=== PATIENT | female | born 2000 | race Caucasian/White ===

== ENCOUNTER 2024-06-20 10:35 | Emergency (ER) | payer BC, SELFPAY ==
[2024-06-20] VITALS (8 sets, daily range): BP systolic 97–112; BP diastolic 63–71; PULSE 69–106; RESP 12–18; TEMP 36.6–36.7; O2SAT 98–100
--- NOTE | ~2024-06-20 | CT_ITS ---
Non-contrast CT scan of the Abdomen and Pelvis Clinical indication: Kidney stone Technique: 2.5 mm axial scans were obtained through the abdomen and pelvis without intravenous or or al contrast. Dose reduction technique was used on this scan by utilizing automated exposure control a nd iterative reconstruction technique. The dose-length product (DLP) was 376.93 mGy-cm. Findings: Images through the lung bases reveal focal patchy left basilar airspace disease, compatibl e with left lower lobe pneumonia.. Small bilateral nonobstructing renal stones are present, measuring up to 4 mm in maximum diameter to right lower pole. There is a 7 x 4 mm ovoid stone the proximal left ureter with mild left hydronephro sis. No right ureteral stone or right hydronephrosis. The liver, spleen, pancreas, gallbladder, and adrenals appear normal. There is no aortic aneurysm. There is no evidence of bowel obstruction. Images through the pelvis were performed. There is no evidence of ascites or lymphadenopathy. Urinary bladder unremarkable. No pelvic mass seen. Impression: 7 x 4 mm stone in the proximal left ureter, with mild left hydronephrosis. Additional small bilateral nonobstructing renal stones, as detailed above. Reviewed, dictated and finalized at location . Impression: 7 x 4 mm stone in the proximal left ureter, with mild left hydronephrosis. Additional small bilateral nonobstructing renal stones, as detailed above.
--- NOTE | ~2024-06-20 | XR_ITS ---
XR abdomen/kub 1V 06/20/2024 12:59 Indication: Kidney stone Procedure: KUB Comparison: CT dated 06/20/2024 Findings: There is a proximal left ureteral stone at the L2-3 level. There is a right renal stone. Th ere is nonobstructive bowel gas pattern with moderate colonic fecal loading. No acute osseous abnorma lity. Impression: 1: Proximal left ureteral stone corresponding to stones seen on CT examination. 2: Right nephrolithiasis. Reviewed, dictated and finalized at location B. Impression: 1: Proximal left ureteral stone corresponding to stones seen on CT examination. 2: Right nephrolithiasis.
[2024-06-20 10:58] LABS: BEDSIDEPREGUCG Negative (Negative)
[2024-06-20 11:04] LABS: Basophils Percent Auto 0.4 % (0.2-1.2); Eosinophils Percent Auto 0.5 % (0-4.4); Hematocrit 44.6 % (37.0-47.0); Hemoglobin 14.4 g/dL (12.0-15.0); Immature Granulocyte Absolute 0.02 K/mm3 (0.00-0.031); Immature Granulocyte Percent A 0.2 % (0-0.5); Lymphocytes Absolute Auto 0.77 K/mm3 (0.9-3.2); Lymphocytes Percent Auto 9.2 % (18.3-44.2); Mean Corpuscular HGB Conc 32.3 g/dl (32-36); Mean Corpuscular Hemoglobin 27.9 pg (26-34); Mean Corpuscular Volume 86.4 fl (80-100); Mean Platelet Volume 9.7 fl (7.4-10.4); Monocytes Absolute Auto 0.5 K/mm3 (0.1-0.6); Monocytes Percent Auto 6.1 % (2.6-8.5); Neutrophils Percent Auto 83.6 % (45.5-73.1); Platelet Count Result 386 k/mm3 (150-375); Red Blood Count 5.16 M/mm3 (4.2-5.4); Red Cell Distribution Width 13.3 % (11.5-14.5); White Blood Count 8.3 K/mm3 (4.5-10.0)
[2024-06-20 11:15] LABS: Alanine Aminotransferase 20 U/L (6-35); Albumin Level 4.5 g/dL (3.5-5.1); Alkaline Phosphatase 91 U/L (38-126); Anion Gap 14 mmol/L (4-12); Aspartate Amino Transferase 22 U/L (14-36); Bilirubin,Total 1.1 mg/dL (0.2-1.3); Blood Urea Nitrogen 8 mg/dL (7-17); Calcium 9.6 mg/dL (8.4-10.2); Carbon Dioxide 24 mmol/L (22-30); Chloride 101 mmol/L (98-107); Estimated CRCL calculation 90 ml/min; Estimated Glomerular Filt Rate > 60; Glucose 103 mg/dL (65-110); Potassium 3.7 mmol/L (3.4-5.0); Sodium 139 mmol/L (137-145)
[2024-06-20 11:16] LABS: Lactic Acid Reflex 1.5 mmol/L (0.7-2.0)
[2024-06-20 11:19] LABS: Add Urine Microscopic? YES; Appearance Urine Turbid (Clear); Bacteria Urine None Seen /hpf; Bilirubin Urine Negative (Negative); Blood Urine 3+ (Negative); Color Urine Yellow (Yellow); Glucose Urine UA Negative (Negative); Ketones Urine 1+ mg/dL (Negative); Leukocyte Esterase Ur Trace LEU/UL (Negative); Mucus Urine Present /lpf; Need Manual Microscopic Reviewed; Nitrate Urine Negative (Negative); Protein Urine 1+ mg/dL (Negative); RBC Urine >100 /hpf (0-2); Specific Grav Ur 1.014 (1.001-1.035); Squamous Epithelial Cell Urine None Seen /hpf (Few); WBC Urine 0-5 /hpf (0-3); pH Urine 7.5 (5.0-9.0)
--- NOTE | 2024-06-20 13:26 | WPDURCON ---
Assessment and Plan Assessment and plan (1) Left ureteral calculus: Code(s): N20.1 - Calculus of ureter Status: Acute Assessment and Plan: Given that she is afebrile and pain is nonexistent at this time. Normal white count and urinalysis. Will recommend discharge from the emergency room. Discharged home with pain meds antibiotics and Flomax. Instructed to hold off on any anti-inflammatories or aspirin products. Urine to be obtained for culture. We will schedule her for left ureteral lithotripsy. She is aware if the pain recurs and not controlled that she may need a stent placed. This completes dictation. Please send a copy to my office Urology Consult Note HPI Date Seen: 06/20/24 Time Seen: 13:26 Primary Care Provider: Aurora Dumont, Consult Narrative Reason for consult: Left proximal ureteral calculus 7 mm Narrative: Yanelis Love is a 24 year old female with no prior history of stones who developed some left flank pain. By the time she got to the emergency room she was feeling better but she was worked up. CT scan was obtained which revealed a 7 mm left proximal ureteral calculus. She also has a right renal stone. Both her KUB positive. Her white count was 8000 no evidence of fever at this time. Urinalysis without evidence of infection. Review of Systems Review of Systems: All systems reviewed & are unremarkable except as noted in HPI and below PMFSH Past Medical History Medical History Allergies Asthma Broken arm Right Surgical History Surgical History History of placement of ear tubes Family History Family History Father Diabetes mellitus Mother Asthma Grandparent Alcoholism Heart disease Social History Social History Smoking status: Never smoker Alcohol intake: never Substance use: never Meds Home Medications and Allergies Home Medications Medication Instructions Recorded Confirmed Type multivitamin 1 tablet PO DAILY 03/11/22 05/26/22 History norgestimate-ethinyl estradiol 1 tablet PO DAILY #84 tabs 04/20/22 05/26/22 Rx 0.18 mg/0.215mg/0.25mg-35 mcg(28)tablet (Tri Femynor) Allergies Allergy/AdvReac Type Severity Reaction Status Date / Time No Known Allergies Allergy Verified 06/20/24 10:39 Vital Signs Vital Signs - 24 hr 06/20/24 10:36 06/20/24 10:58 06/20/24 11:38 Temperature 36.6 C Pulse Rate 106 H 69 79 Respiratory Rate 18 12 Blood Pressure 110/65 112/69 97/66 L Pulse Oximetry 100 100 100 Oxygen Delivery Room Air 06/20/24 11:45 Temperature Pulse Rate 81 Respiratory Rate Blood Pressure 98/66 L Pulse Oximetry 99 Oxygen Delivery Exam Const: General: cooperative, healthy appearing and comfortable Resp: Effort & Inspection: normal respiratory effort Cardio: Rate: regular rate Rhythm: regular rhythm Results Labs 06/20/24 10:56 06/20/24 10:56 Labs: Short CBC 06/20/24 Range/Units 10:56 WBC 8.3 (4.5-10.0) K/mm3 Hgb 14.4 (12.0-15.0) g/dL Hct 44.6 (37.0-47.0) % Plt Count 386 H (150-375) k/mm3 BMP 06/20/24 10:56 Sodium 139 Potassium 3.7 Chloride 101 Carbon Dioxide 24 BUN 8 Creatinine 0.80 Glucose 103 Calcium 9.6 Liver Function 06/20/24 Range/Units 10:56 Total Bilirubin 1.1 (0.2-1.3) mg/dL AST 22 (14-36) U/L ALT 20 (6-35) U/L Alkaline Phosphatase 91 (38-126) U/L Albumin 4.5 (3.5-5.1) g/dL Urine 06/20/24 Range/Units 10:56 Urine Color Yellow (Yellow) Urine Appearance Turbid H (Clear) Urine pH 7.5 (5.0-9.0) Ur Specific [place] 1.014 (1.001-1.035) Urine Protein 1+ H (Negative) mg/dL Urine Glucose (UA) Negative (Negative) mg/dL
--- NOTE | 2024-06-20 13:54 | ED.GENADULT ---
HPI - General Adult General Chief complaint: Back Pain/Injury Stated complaint: back pain Time Seen by Provider: 06/20/24 10:44 Source: patient Mode of arrival: ambulatory Limitations: no limitations History of Present Illness HPI narrative: 24-year-old otherwise healthy here with a complaint of low back pain for past 4 days patient states that early this morning she had intense pain however by the time she got here to the ER her pain has much improved. She also states that her urine is dark in color. She denies any nausea, vomiting. No previous history of kidney stones or kidney infections. Patient states that she had a fever a week ago that time she had cold and cough symptoms which have much subsided. Onset (ago): day(s) (4) Location: back Severity: moderate Quality: aching Relieving factors: none Exacerbating factors: none Associated symptoms: denies other symptoms Treatments prior to arrival: none Related Data Home Medications Medication Instructions Recorded Confirmed multivitamin 1 tablet PO DAILY 03/11/22 05/26/22 Allergies Allergy/AdvReac Type Severity Reaction Status Date / Time No Known Allergies Allergy Verified 06/20/24 10:39 Review of Systems Review of Systems: All systems reviewed & are unremarkable except as noted in HPI and below Constitutional: Constitutional: Reports no additional constitutional complaints Eyes: Eyes: Reports no additional eye complaints ENT: Reports system reviewed and no additional complaints, except as documented Cardiovascular: Cardiovascular: Reports no additional cardiovascular complaints Gastrointestinal: Gastrointestinal: Reports no additional gastrointestinal complaints Musculoskeletal: Musculoskeletal: Reports as per HPI Integumentary/Breasts: Skin/Breast: Reports system reviewed and no additional complaints, except as docu Neurologic: Reports system reviewed and no additional complaints, except as documented PMFSH Past Medical History Medical History Allergies Asthma Broken arm Right Surgical History Surgical History History of placement of ear tubes Family History Family History Father Diabetes mellitus Mother Asthma Grandparent Alcoholism Heart disease Social History Social History Smoking status: Never smoker Alcohol intake: never Substance use: never Exam Narrative: GENERAL: Well-appearing, well-nourished, and in no acute distress. HEAD: Normocephalic, atraumatic. EYES: PERRLA and EOMI. ENT: Nares clear, no rhinorrhea. NECK: Supple. CHEST: Clear to auscultation. No respiratory distress. HEART: Regular rate and rhythm. No murmur heard. Normal peripheral pulses. ABDOMEN: Soft, nontender, nondistended, normal active bowel sounds. EXTREMITIES: Normal range of motion. No edema. SKIN: Warm, dry, no rash. NEURO: No focal deficits. Alert and oriented x3. PSYCH: Normal mood and affect. Course Course Emergency Course: Patient was notified about her lab work, CT findings. I discussed with Dr. Wild , was here to see the patient. Patient can be discharged home with follow-up in office for lithotripsy recommended antibiotic and pain medication . Vital Signs Vital signs: Vital Signs Temperature 36.6 C 06/20/24 10:36 Pulse Rate 106 H 06/20/24 10:36 Respiratory Rate 18 06/20/24 10:36 Blood Pressure 110/65 06/20/24 10:36 Pulse Oximetry 100 06/20/24 10:36 Oxygen Delivery Room Air 06/20/24 10:36 Temperature 36.6 C 06/20/24 10:36 Pulse Rate 91 06/20/24 12:45 Respiratory Rate 17 06/20/24 12:45 Blood Pressure 106/71 06/20/24 12:45 Pulse Oximetry 98 06/20/24 12:45 Oxygen Delivery Room Air 06/20/24 10:36 Medical Decision Making CRISTEL Narrative Medical decision m
== END 2024-06-20 14:20 | disposition home or self-care (01) ==
PROVIDERS: Registered Nurse; Emergency Provider Family Medicine; PCP Family Medicine
DX: N20.1 Calculus of ureter (principal); J45.909 Unspecified asthma, uncomplicated
CPT/HCPCS: 36415; 74018; 74176; 80053; 81001; 81025; 83605; 85025; 99284

== ENCOUNTER 2024-06-23 00:29 | Day surgery (SDC) | payer BC, SELFPAY ==
[2024-06-21 11:33] VITALS: BMI 24.3
--- NOTE | 2024-06-21 11:34 | PC.NURSE ---
Report to the Outpatient Waiting Room, entrance under the green pavilion located off [facility], at time _1000_ on date _[id number]_. Planned Procedure Time: _1200_.? Time changes happen often and if your time is changed the preop area will call you the afternoon before. - You and your visitor will be asked to self-screen and do not enter if you have any COVID symptoms. Please call surgeon if you need to reschedule. - A mask is optional within the hospital at this time. Patients may have clear liquids (water, carbonated beverages, clear teas, apple juice) until 3 hours prior to surgery with a maximum of 20 ounces. - No food from midnight until time of surgery and no smoking Take only the following medications with a SIP of water on the morning of surgery____Pain med if needed. DO NOT STOP ANY OF YOUR OTHER PRESCRIPTION MEDICATIONS PRIOR TO SURGERY EXCEPT THE FOLLOWING Medications to discontinue per physician ____None Please no make-up, nail gibraltarian, hairspray, perfume, deodorant, or body powder the day of surgery.? No jewelry (including any body piercings) or valuables the day of surgery, leave them at home.? Please take a shower or bath the night before, or the morning of, surgery with an antibacterial soap.? Wear comfortable, loose fitting clothing.? - Jewelry must be removed prior to entering the operating room.? Rings and piercings that are not removed may be cut off. - The hospital will not accept responsibility for valuables.? - Please leave all valuables, including medications, at home the day of surgery. If you are going home after surgery, a licensed front loader residential driver must drive you home.? - NO public transportation without another adult if you receive anesthesia. - We recommend that an adult stay with you for 24 hours following discharge. - We also recommend that you do not drive, make important decision, drink alcoholic beverages, or take any drugs that were not prescribed by your health care provider for at least 24 hours after your discharge time. Follow any additional instructions given to you from your surgeon. Telephone instructions given to __Yanelis___and asked if any additional questions and then verbalized understanding. Patient advised to call surgeon office or pre surgery nurse liaison [phone] if any additional questions.
[2024-06-23] VITALS (9 sets, daily range): BP systolic 86–129; BP diastolic 64–77; PULSE 65–93; RESP 12–20; TEMP 36.3; O2SAT 100
--- NOTE | ~2024-06-23 | XR_ITS ---
XR abdomen/kub 1V 06/23/2024 09:01 Indication: Renal stones] Procedure: KUB Comparison: 06/20/2024 Findings: Stable right renal stone. There is a stone in the left renal pelvis at the L3 level. Bowel gas pattern nonobstructive. Moderate colonic fecal loading. Lung bases unremarkable. Mild dextrocurva ture of the lumbar spine. Impression: 1: Bilateral nephrolithiasis with left stone presumably in the renal pelvis. Reviewed, dictated and finalized at location B. Impression: 1: Bilateral nephrolithiasis with left stone presumably in the renal pelvis.
--- NOTE | 2024-06-23 06:39 | WPDHPUPDATE1 ---
History and Physical Update Update Date/Time: 06/23/24 06:39 History and Physical has been reviewed, including an updated exam of the patient. There are NO changes in the patient's condition. Risks, benefits, and alternatives have been discussed and questions answered. Patient agrees to proceed with procedure.
--- NOTE | 2024-06-23 08:50 | P.HP_ITS ---
History of Present Illness History of Present Illness Consent: Risks, benefits, and alternatives have been discussed and questions answered. Patient agrees to proceed with procedure. Chief complaint: left ureteral stone Narrative: Yanelis Love is a 24 year old female who was recently seen by Dr. Wild in consultation with a painful 7 mm left proximal ureteral stone. She also has nonobstructing stones in right kidney. Her stones are calcified. She was discharged with plans for left ESWL. She is aware the risk including, but not limited to, need for additional procedures, hematuria, perinephric. Review of Systems Cardiovascular: Cardiovascular: Denies chest pain, Denies lightheadedness, Denies palpitations and Denies dyspnea Respiratory: Respiratory: Denies dyspnea Gastrointestinal: Gastrointestinal: Denies diarrhea, Denies nausea and Denies vomiting Genitourinary: Genitourinary: Denies hematuria and Denies dysuria Endocrine: Endocrine: Denies palpitations PMFSH Past Medical History Medical History Allergies Asthma Broken arm Right Surgical History Surgical History History of placement of ear tubes Family History Family History Father Diabetes mellitus Mother Asthma Grandparent Alcoholism Heart disease Social History Social History Smoking status: Never smoker Alcohol intake: current Drinks per week: 3 Substance use: never Living arrangements: with family Spiritual care concerns: No Meds Home Medications and Allergies Home Medications Medication Instructions Recorded Confirmed Type multivitamin 1 tablet PO DAILY 03/11/22 06/21/24 History ciprofloxacin HCl 500 mg tablet 500 mg PO Q12H #14 tabs 06/20/24 06/21/24 Rx (Cipro) hydrocodone 5 mg-acetaminophen 325 1 tablet PO Q6H PRN pain #14 tabs 06/20/24 06/21/24 Rx mg tablet tamsulosin 0.4 mg capsule (Flomax) 0.4 mg PO DAILY #10 caps 06/20/24 06/21/24 Rx acetaminophen 325 mg tablet 650 mg PO Q4H PRN Pain 06/21/24 06/21/24 History Allergies Allergy/AdvReac Type Severity Reaction Status Date / Time No Known Allergies Allergy Verified 06/21/24 11:24 Exam Const: General: no acute distress Resp: Effort & Inspection: normal respiratory effort GI: Inspection: non-distended GI Palp: No abdominal tenderness and No Guarding due to palpation present (GI) Auscultation: normal bowel sounds Assessment and Plan Assessment and plan (1) Left ureteral calculus: Code(s): N20.1 - Calculus of ureter Status: Acute Assessment and Plan: * Left ESWL
--- NOTE | 2024-06-23 09:22 | WPDANESEPPF ---
Anes - Initial Pre Proc Eval Procedure: Operation Date: 06/23/24 10:30 Proposed Procedures p Left Extracorporeal Shock Wave Lithotripsy - Donell Ambrosio MD Date/Time: 06/23/24 09:22 Surgeon: Donell Ambrosio MD Pre Op Diagnosis: left ureteral stone Patient Data Age: 24 Gender: F Height: 1.68 m Weight: 68 kg Allergies Allergy/AdvReac Type Severity Reaction Status Date / Time No Known Allergies Allergy Verified 06/21/24 11:24 Home Medications Medication Instructions Recorded Confirmed Type multivitamin 1 tablet PO DAILY 03/11/22 06/21/24 History ciprofloxacin HCl 500 mg tablet 500 mg PO Q12H #14 tabs 06/20/24 06/21/24 Rx (Cipro) hydrocodone 5 mg-acetaminophen 325 1 tablet PO Q6H PRN pain #14 tabs 06/20/24 06/21/24 Rx mg tablet tamsulosin 0.4 mg capsule (Flomax) 0.4 mg PO DAILY #10 caps 06/20/24 06/21/24 Rx acetaminophen 325 mg tablet 650 mg PO Q4H PRN Pain 06/21/24 06/21/24 History Patient hx anesthesia problems: none Family hx anesthesia problems: none Results Review: All pre-operative results and documents have been reviewed as part of the pre-operative evaluation. [facility] Past Medical History Medical History Allergies Asthma Broken arm Right Surgical History Surgical History History of placement of ear tubes Family History Family History Father Diabetes mellitus Mother Asthma Grandparent Alcoholism Heart disease Social History Social History Smoking status: Never smoker Alcohol intake: current Drinks per week: 3 Substance use: never Living arrangements: with family Spiritual care concerns: No Anes - Eval Final PreProcedure Day of Procedure 06/23/24 09:22 Patient weight: normal Heart: regular rate and rhythm Lungs: clear to auscultation Airway: Mallampati scale class 1 Neurological: alert and oriented Last oral intake: >/= 8 hours ASA classification: II Emergent: no Anesthetic plan: proceed Anesthesia type and monitoring: general LMA and standard monitoring Results Review: All pre-operative results and documents have been reviewed as part of the pre-operative evaluation. Informed Consent: The patient's anesthetic plan and its attendant risks and benefits were discussed with the patient/family/POA. Questions were solicited and answers provided to the satisfaction of the patient/family/POA.
[2024-06-23] MEDS: LACTATED RINGERS 1,000 ML 30 ML IV CONT ×2 (09:30→10:54)
[2024-06-23 09:54] LABS: BEDSIDEPREGUCG Negative (Negative)
[2024-06-23 10:01] LABS: INR 1.2; Partial Thromboplastin Time 29.9 Seconds (22.3-36.8); Prothrombin Time 15.5 Seconds (11.1-14.7)
[2024-06-23] MEDS: ONDANSETRON INJ 4 MG/2 ML VIAL IV PUSH (11:10)
--- NOTE | 2024-06-23 11:19 | W.PM.PROC2 ---
Procedure Note - Detailed Date of Procedure 06/23/24 Pre-op Diagnosis Left ureteral stone Post-op Diagnosis Same Procedure Performed Left ESWL Surgeon Donell Ambrosio MD Anesthesia General Description of Procedure The patient was brought to the operative suite where she was placed in the supine position on the Dornier lithotripsy table. The focal point of the lithotripter was placed at a 7x4mm left proximal ureteral calculus. A total of 3000 shocks were delivered at a power setting of 5. There appeared to be good fragmentation of the stone. The patient tolerated the procedure well and was taken to the recovery room in good condition. Drains No Packing No Pathology None sent
[2024-06-23] MEDS: diphenhydrAMINE HCl INJ 50 MG/ML VIAL 25 MG IV PUSH (12:16)
[2024-06-23] MEDS: SCOPOLAMINE 1 MG PATCH 1 PATCH TRANSDERM (12:26)
--- NOTE | 2024-06-23 12:51 | SUR.PHASEII ---
Patient vitals are stable and she is unhooked from the monitors and just letting the nausea subside before she leaves.
== END 2024-06-23 13:19 | disposition home or self-care (01) ==
PROVIDERS: PCP Family Medicine; Visit Provider Urology
PROC: (CPT 50590; principal; 2024-06-23 10:30)
DX: N20.1 Calculus of ureter (principal)
CPT/HCPCS: 50590; 36415; 74018; 85610; 85730; A9270; J1100; J1200; J2250; J2405; J2704; J7120

== ENCOUNTER 2024-07-04 15:12 | Outpatient (CLI) | payer BC, SELFPAY ==
--- NOTE | ~2024-07-04 | XR_ITS ---
XR abdomen/kub 1V Ordering provider: Donell Ambrosio MD History: . LEFT URETERAL STONE . Comparison: June 23, 2024 FINDINGS: BOWEL: Fecal material seen in both sides of the colon. Nonobstructive bowel gas pattern. ORGANOMEGALY: None. SIGNIFICANT PATHOLOGIC CALCIFICATIONS: None. Previously seen stone in the left upper ureter is not demonstrated. OTHER: No free air is seen under the diaphragm. IMPRESSION: NO ACUTE ABDOMINAL FINDINGS. Constipation. Reviewed, dictated and finalized at location A.
== END 2024-07-04 15:13 | disposition home or self-care (01) ==
LOC: MICIMG 15:13
PROVIDERS: PCP Urology; Visit Provider Urology
DX: N20.1 Calculus of ureter (principal); K59.00 Constipation, unspecified
CPT/HCPCS: 74018

== ENCOUNTER 2025-02-02 10:37 | Outpatient (CLI) | payer BC, SELFPAY ==
--- NOTE | ~2025-02-02 | XR_ITS ---
XR abdomen/kub 1V Ordering provider: Meggan Brandon APRN History: . Kidney stone r side . Comparison: None. FINDINGS: BOWEL: Nonobstructive bowel gas pattern. Fecal material is loaded in the colon. ORGANOMEGALY: None. SIGNIFICANT PATHOLOGIC CALCIFICATIONS: Stone in the right kidney lower pole. OTHER: No free air is seen under the diaphragm. IMPRESSION: NO ACUTE ABDOMINAL FINDINGS. Constipation. Tiny stone in the right kidney lower pole measuring 2.7 mm.. Reviewed, dictated and finalized at location A.
== END 2025-02-02 10:38 | disposition home or self-care (01) ==
PROVIDERS: PCP Family Medicine; Visit Provider Nurse Practitioner Family
DX: N20.0 Calculus of kidney (principal)
CPT/HCPCS: 74018

== ENCOUNTER 2025-02-26 09:02 | Emergency (ER) | payer BC, SELFPAY ==
[2025-02-26 09:07] VITALS: BP 101/76; PULSE 94; RESP 16; TEMP 36.6; O2SAT 100
--- NOTE | 2025-02-26 09:12 | ED.SKABFB ---
HPI - Skin/Abscess/Foreign Bdy General Chief complaint: Skin/Abscess/Foreign Body Stated complaint: Cyst Source: patient and RN notes reviewed Mode of arrival: ambulatory Limitations: no limitations History of Present Illness HPI narrative: Patient is a 24-year-old female who presents to the [facility] with complaints of possible infected cyst to her coccyx. She has had a tender area to the tailbone for the last couple days. She states that it has increased in size and become more tender. There is surrounding erythema. She states that she has had an infected cyst to this area in the past but it did not need drained. She denies any drainage from the wound at home. Denies recent fevers. Related Data Home Medications ?Medication ?Instructions ?Recorded ?Confirmed ?Last Taken ?Type multivitamin 1 tablet PO DAILY 03/11/22 12/20/24 Unknown History spironolactone 100 mg tablet mg 02/26/25 Unknown History Allergies Allergy/AdvReac Type Severity Reaction Status Date / Time No Known Allergies Allergy Verified 02/26/25 09:05 Review of Systems Review of Systems: CONSTITUTIONAL: Denies fever, chills, or sweats. EYES: Denies visual changes, redness, or discharge. ENT: Denies otalgia and sore throat CARDIOVASCULAR: Denies chest pain, palpitations, or edema. RESPIRATORY: Denies cough or dyspnea. GASTROINTESTINAL: Denies abdominal pain, nausea, vomiting, or diarrhea. GENITOURINARY: Denies dysuria or hematuria. SKIN: Reports cyst to tailbone area. MUSCULOSKELETAL: Denies back pain, joint pain, or myalgia. NEUROLOGIC: Denies headache, numbness, or weakness. Pertinent positives per HPI. [facility] Past Medical History Medical History Broken arm Right Asthma Allergies Surgical History Surgical History History of placement of ear tubes Family History Family History Father Diabetes mellitus Mother Asthma Grandparent Alcoholism Heart disease Social History Social History Smoking status: Never smoker Alcohol intake: current Drinks per week: 3 Substance use: never Living arrangements: with family Spiritual care concerns: No Comments At the time of my signature, I reviewed and agree with the nursing past medical, surgical, social, and family history. There is no relevant family history pertinent to the patient complaint. Exam Narrative: GENERAL: This is a well-nourished, well-developed patient, in no apparent distress. HEAD: normocephalic, atraumatic. EYES: Sclera clear/white. Vision is grossly intact. EARS: External ears normal. Hearing grossly intact. NOSE: External nose normal with no obvious nasal discharge, nares without redness, no rhinorrhea. THROAT: Mucous membranes moist, posterior pharynx clear. NECK: Neck supple, non-tender without lymphadenopathy, masses or thyromegaly. CARDIOVASCULAR: Regular rate and rhythm without murmurs, gallops, or rubs. RESPIRATORY: Clear to auscultation. Breath sounds equal bilaterally. No wheezes, rales, or rhonchi. GASTROINTESTINAL: Abdomen soft, non-tender, nondistended. Bowel sounds are active. No hepato-splenomegaly, or palpable masses. No guarding. SKIN: 3x3 cm abscess to the coccyx area with surrounding induration, swelling, erythema, and warmth. + tenderness. NEURO: awake, alert, and oriented to person, place and time. There were no obvious focal neurologic abnormalities. Course Course Level of Care: Express Care Visit Vital Signs Vital signs: Vital Signs Temperature 97.9 F 02/26/25 09:07 Pulse Rate 94 02/26/25 09:07 Respiratory Rate 16 02/26/25 09:07 Blood Pressure 101/76 02/26/25 09:07 Pulse Oximetry 100 02/26/25 09:07 Oxygen Delivery Room Air 02/26/25 09:07 Temperature 97.9 F 02/26/25 09:07 Pulse Rate 94 02/26/25 09:07 Respiratory Rate 16 02/26/25 09:07 Blood Pressure 101/76 02/26/25 09:07 Pulse Oximetry 100 02/26/25 09:07 Oxygen Delivery Room Air 02/26/25 09:07 Reviewed Procedures Abscess I/D back: Date of Incision: 02/26/25 Time of Incision: 09:35 Local Anesthetic: lidocaine 1% Amount of anesthesia used (mL): 4 Technique: incised with #11 blade Amount of fluid expressed (mL): 20 Packing used?: none I&D Results: Pus and Blood Complications: bleeding MDM - Skin/Abscess/Foreign Bdy MDM Narrative Medical decision making narrative: I&D performed. wound culture collected. Patient was placed Keflex and Bactrim for dual therapy. Patient instructions: DO NOT pick at the area. This will only make the area worse and drive infection deeper. Shower and wash with soapy water. Keep area clean and dry. Take all the antibiotics as prescribed. Make sure to keep a dressing in place especially while it is draining Follow up with PCP in 7-10 days Return to Urgent care or go to the ER for worsened condition or Symptoms Differential Diagnosis Differential diagnosis: Likely abscess of skin or subcutaneous tissue, cellulitis and contact dermatitis Critical Care Time Critical Care Time Critical Care Time: No Discharge Plan Discharge Clinical Impression: Abscess of coccyx Patient Disposition: Home Condition: Stable Instructions: Antibiotic Form, Abscess (ED) Additional Instructions: DO NOT pick at the area. This will only make the area worse and drive infection deeper. Shower and wash with soapy water. Keep area clean and dry. Take all the antibiotics as prescribed. Make sure to keep a dressing in place especially while it is draining Follow up with PCP in 7-10 days Return to Urgent care or go to the ER for worsened condition or Symptoms Please hold your Spironolactone while taking Bactrim. Patient Language: Macedonian Prescriptions: New cephalexin 500 mg capsule 500 mg PO Q8H 10 Days Qty: 30 0RF sulfamethoxazole-trimethoprim 800-160 mg tablet 1 tablet PO Q12H 10 Days Qty: 20 0RF No Action spironolactone 100 mg tablet multivitamin Tablet 1 tablet PO DAILY Follow-up/Referrals: Aurora Dumont DO [Primary Care Provider] - Time of Disposition: 09:46
== END 2025-02-26 09:54 | disposition home or self-care (01) ==
PROVIDERS: Emergency Provider Nurse Practitioner; PCP Family Medicine
DX: L02.212 Cutaneous abscess of back [any part, except buttock and flank] (principal); J45.909 Unspecified asthma, uncomplicated
CPT/HCPCS: 10060; 87070; 87075; 87205; 99213; G0463; J2003

== ENCOUNTER 2025-04-06 00:06 | Day surgery (SDC) | payer BC, SELFPAY ==
[2025-03-28 16:42] VITALS: BMI 24.2
--- NOTE | 2025-03-28 16:50 | SUR.PREOP ---
Report to the Outpatient Waiting Room, entrance under the green pavilion located off [facility], at time ___0600____ on date [id number] . Planned Procedure Time: ___729 .? Time changes happen often and if your time is changed the preop area will call you the afternoon before. - You and your visitor will be asked to self-screen and do not enter if you have any COVID symptoms. Please call surgeon if you need to reschedule. - A mask is optional within the hospital at this time. Patients may have clear liquids (water, carbonated beverages, clear teas, apple juice) until 3 hours prior to surgery (0530) with a maximum of 20 ounces. - No food from midnight until time of surgery and no smoking, or chewing tobacco (or any form of nicotine). No chewing gum, candy or mints. - Infants may have breast milk until 4 hours before surgery, formula 6 hours prior to surgery. - Children will be allowed to drink immediately following surgery.? If applicable, please bring a bottle or sippy cup to assist with drinking. Juice, water, soda, and popsicles are readily available.? For infants on formula, please bring formula the day of surgery.? Pacifiers are allowed. Take only the following medications with a SIP of water on the morning of surgery: Augmentin (if antibiotic therapy not completed by day of surgery) DO NOT STOP ANY OF YOUR OTHER PRESCRIPTION MEDICATIONS PRIOR TO SURGERY EXCEPT THE FOLLOWING Hold all vitamins and supplements for 3 days per anesthesiologist. Medications to discontinue per physician N/A Date to take last dose N/A Please no make-up, nail gibraltarian, hairspray, perfume, deodorant, or body powder the day of surgery.? No jewelry (including any body piercings) or valuables the day of surgery, leave them at home.? Please take a shower or bath the night before, or the morning of, surgery with an antibacterial soap.? Wear comfortable, loose fitting clothing.? Children are encouraged to wear pajamas. - Jewelry must be removed prior to entering the operating room.? Rings and piercings that are not removed may be cut off. - The hospital will not accept responsibility for valuables.? - Please leave all valuables, including medications, at home the day of surgery. If you are going home after surgery, a licensed catering truck driver must drive you home.? - NO public transportation without another adult if you receive anesthesia. - We recommend that an adult stay with you for 24 hours following discharge. - We also recommend that you do not drive, make important decision, drink alcoholic beverages, or take any drugs that were not prescribed by your health care provider for at least 24 hours after your discharge time. For Pediatric surgeries, we recommend two adults accompany the child home. Follow any additional instructions given to you from your surgeon. Telephone instructions given to ____Yanelis and asked if any additional questions and then verbalized understanding. Patient advised to call surgeon office or pre surgery nurse liaison [phone] if any additional questions.
--- OUTSIDE RECORDS SUMMARY | 2025-04-06 00:11 | XMS_ITS | Referral Summary ---
Author Organization [facility] Address [address] [place] [id number] Care Team Providers Care Casing Cooker Name Role Phone Birdie Dexter MD Primary Care Provider [phone] Allergies No known active allergies Medications No known medications Active Problems No known active problems Immunizations Immunization Administration Dates Next Due DTaP, Unspecified 08/02/2007, 3,2002,09/14,2002 HPV9 09/12/2016,05/02/2016,02/26/2016 Hep A, Unspecified 05/25/2006,11/17/2005 Hep B, Unspecified 2002,2002, 002 HiB 08/14/2003, 3,2002,07/19 Influenza, Quadrivalent, Spl it, Preservative Free, Intramuscular 05/30/2020 Influenza, Unspecified 06/18/2018 MMR 08/02/2007,05/29/2003 Meningococcal Conjugate (Menveo) 02/14/2019 Meningococcal MCV4P (Menactra) 06/16/2013 Pfizer SARS-CoV-2 Monovalent Vaccination (12+ Yrs) PURPLE 09/08/2021,12/23/2020,12/02/2020 Pfizer Sars-Cov-2 Bivalent V accination (12+ YRS) 08/23/2022 Pneumococcal Conjugate PCV 13 08/14/2003 ,02/12/2003,2002,09/14 Polio, Unspecified 08/02/2007, 4,2002,09/14,2002 Tdap 02/14/2024,04/14/2013 Typhoid Inactivated 03/27/2024 Social History Tobacco Use Types Packs/Day Years Used Date Smoking Tobacco: Never Personal Safety Answer Date Recorded Getting School Help Needed Not on file 03/16 Comments Unknown Sex and Gender Information Value Date Recorded Sex Assigned at Not on file 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 Gender Identity Not on file Sexual Orientation Not on file Last Filed Vital Signs Vital Sign Reading Time Taken Comments Blood Pressure 127/82 03/27/2024 9:57 AM CDT Pulse 80 03/27/2024 9:57 AM CDT Temperature 36.8 C (98.2 F) 03/27/2024 9:57 AM CDT Respiratory Rate - - Oxygen Saturation - - Inhaled Oxygen Concentration - - Weight 69.9 kg (154 lb) 03/27/2024 9:57 AM CDT Height 168 cm (5' 6.14) 03/27/2024 9:57 AM CDT Body Mass Index 24.75 03/27/2024 9:57 AM CDT Plan of Treatment Not on file Insurance [email or web address] [place] Care Teams Casing Cooker Relationship Specialty Start Date End Date Birdie Dexter MD [address] [place] [address] [facility] - General 12/29/16
--- OUTSIDE RECORDS SUMMARY | 2025-04-06 00:11 | XMS_ITS | Clinical Summary ---
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 Gender Identity Not on file Sexual Orientation Not on file Obstetrics History Last Filed Vital Signs Vital Sign Reading [...] 03/27/2024 9:57 AM CDT Plan of Treatment Health Maintenance Due Date Last Done Comments Cervical Cancer Screening 2002 Depression Screening 2002 Hepatitis C Screening 2002 Meningococcal B Vaccine (1 o f 2 - Standard) 2018 Regular Well Visit/Exam 18-64 2020 Covid-19 Vaccine (2023-2 5 season) 2024 08/23/2022, 09/08/2021, 12/23/2020, Additional history exists Influenza Vaccine (#1) 2025 05/30/2020, 2017 DTaP/Tdap/Td Vaccine (8 - Td or Tdap) 02/13/2034 02/14/2024, 04/14/2013, 08/02/2007, Additional history exists Hepatitis B Screening Completed 2002 , 2002, 2002 Pneumococcal vaccine <65 Completed 003, 02/12/2003, 2002, Additional history exists Varicella Vaccines Completed 08/02/2007, 05/29/2003 HPV Vaccines Completed 09/12/2016, 04/07, 02/26/2016 Insurance [employer] [facility] Care Teams Director Supply Relationship Specialty Start Date End Date Birdie Dexter MD [address] [place] [address] PCP - General 12/29/16
--- OUTSIDE RECORDS SUMMARY | 2025-04-06 00:11 | XMS_ITS | Clinical Summary ---
Author Organization [facility] Address [address] [place] [address] Care Team Providers Care Fish Tender Name Role Phone Birdie Dexter MD Primary Care Provider [phone] Source Comments [facility],non-owned Affiliates and Associated Physician Practices is amultiple site organization consisting of ambulatory clinics and hospital sitesin [place], [place], [place] and [place]. This disclosure is being madepursuant to the Care Everywhere program and may not contain all information available regarding this patient. Last updated 18.[facility] Allergies No known active allergies Medications * Be aware that medications may not be up to date on this document. Alwaysverify current medications with the patient. mometasone (ASMANEX) 110 MCG/INH inhaler Inhale 1 Puff by mouth once daily. 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 Gender Identity Not on file Sexual Orientation Not on file Plan of Treatment Health Maintenance Due Date Last Done Comments HIV SCREENING 2017 HPV VACCINE (1 - 3-dose series) 2017 CHLAMYDIA/GONORRHEA SCREENING 2018 MENINGOCOCCAL (Group B) VACC INE SHARED DECISION-MAKING (1 of 2 - Standard) 2018 HEPATITIS C SCREENING 05/15/2020 DTAP/TDAP/TD VACCINES (1 - Tdap) 2021 HEPATITIS B VACCINE (1 of 3 - 19+ 3-dose series) 2021 COVID-19 VACCINE (1 - 2023-2 5 season) 2024 DEPRESSION SCREENING 09/06/2024 INFLUENZA VACCINE (#1) 2025 ZOSTER VACCINE (1 of 2) 2052 HIB VACCINE Aged Out No longer eligi ble based on patient's age to complete this topic MENINGOCOCCAL GROUPS A/C/Y/W VACCINE Aged Out No longer eligible b ased on patient's age to complete this topic PNEUMOCOCCAL VACCINE Aged Out No long er eligible based on patient's age to complete this topic Insurance [facility] Care Teams Fish Tender Relationship Specialty Start Date End Date Birdie Dexter MD [address] [place] [address] [address] [place] [id number] PCP - General Pediatrics 04/04/12
[2025-04-06 06:30] VITALS: BP 111/74; PULSE 82; RESP 16; TEMP 36.6; O2SAT 99
[2025-04-06] MEDS: LACTATED RINGERS 1,000 ML 30 ML IV CONT ×2 (06:45→09:50)
[2025-04-06] MEDS: SCOPOLAMINE 1 MG PATCH 1 PATCH TRANSDERM (07:00)
--- NOTE | 2025-04-06 07:19 | WPDANESEPPF ---
Anes - Initial Pre Proc Eval Procedure: Operation Date: 04/06/25 07:30 Proposed Procedures p Pilonidal Cystectomy - Moo Collado MD Date/Time: 04/06/25 07:19 Surgeon: Moo Collado MD Pre Op Diagnosis: Pilonidal Cyst with Sinus Tract Patient Data Age: 24 Gender: F Height: 1.68 m Weight: 68 kg Allergies Allergy/AdvReac Type Severity Reaction Status Date / Time No Known Allergies Allergy Verified 04/06/25 07:16 Home Medications ?Medication ?Instructions ?Recorded ?Confirmed ?Type multivitamin 1 tablet PO DAILY 03/11/22 03/28/25 History spironolactone 100 mg tablet mg 02/26/25 03/14/25 History amoxicillin 500 mg-potassium 1 tablet PO DAILY #14 tabs 03/13/25 03/28/25 Rx clavulanate 125 mg tablet (Augmentin) levofloxacin 500 mg tablet 500 mg PO DAILY #10 tabs 04/05/25 Rx Patient hx anesthesia problems: none Family hx anesthesia problems: none Results Review: All pre-operative results and documents have been reviewed as part of the pre-operative evaluation. [facility] Past Medical History Medical History Broken arm Right Asthma Allergies Surgical History Surgical History History of placement of ear tubes Family History Family History Father Diabetes mellitus Mother Asthma Grandparent Alcoholism Heart disease Social History Social History Smoking status: Never smoker Alcohol intake: current Drinks per week: 2 Substance use: never Current Housing: Decline to Answer Concerned About Future Housing: Decline to Answer Difficulty Paying Gas/Electric Bills: Decline to Answer Difficulty Paying for Meds: Decline to Answer Currently Unemployed: Decline to Answer Education: Decline to Answer Difficulty w/ Childcare or Family Care: Decline to Answer Living arrangements: with family Spiritual care concerns: No Anes - Eval Final PreProcedure Day of Procedure 04/06/25 07:19 Patient weight: normal Heart: regular rate and rhythm Lungs: clear to auscultation Airway: Mallampati scale class II Neurological: alert and oriented Last oral intake: >/= 8 hours ASA classification: II Emergent: no Anesthetic plan: proceed Anesthesia type and monitoring: general ETT and standard monitoring Results Review: All pre-operative results and documents have been reviewed as part of the pre-operative evaluation. Informed Consent: The patient's anesthetic plan and its attendant risks and benefits were discussed with the patient/family/POA. Questions were solicited and answers provided to the satisfaction of the patient/family/POA.
--- NOTE | 2025-04-06 07:58 | PM.IMHP ---
H&P: HPI History of Present Illness Date/Time: 04/06/25 07:58 Chief Complaint: Pilonidal abscess and cellulitis Narrative: Pt is a 24 yo WF who was scheduled to have a pilonidal cystectomy this AM. She had a hx of a pilonidal cyst that abscess 6 weeks ago and had I + D but no packing. When I saw her in the office, the abscess and cellulitis had resolved and the cavity nearly closed. She was placed on suppressive dose of Augmentin. Unfortunately over the past 48 hrs, the cyst has become painful and a abscess has reformed. It spontaneously drained overnight but is still draining some purulent material. At this point it appears to be too infected to have a formal pilonidal cystectomy performed. However because it only spontaneously drained and the opening was very small she will still need a formal incision and drainage of the abscess to allow packing. Review of Systems Review of Systems: The remainder of the review of systems to include constitutional, HEENT, cardiovascular, respiratory, GI, , integumentary, musculoskeletal, endocrine, immunologic, hematologic, psychiatric, and neurologic are all negative except for which is mentioned above in the HPI. [facility] Past Medical History Medical History Broken arm Right Asthma Allergies Surgical History Surgical History History of placement of ear tubes Family History Family History Father Diabetes mellitus Mother Asthma Grandparent Alcoholism Heart disease Social History Social History Smoking status: Never smoker Alcohol intake: current Drinks per week: 2 Substance use: never Current Housing: Decline to Answer Concerned About Future Housing: Decline to Answer Difficulty Paying Gas/Electric Bills: Decline to Answer Difficulty Paying for Meds: Decline to Answer Currently Unemployed: Decline to Answer Education: Decline to Answer Difficulty w/ Childcare or Family Care: Decline to Answer Living arrangements: with family Spiritual care concerns: No Meds Home Medications and Allergies Home Medications ?Medication ?Instructions ?Recorded ?Confirmed ?Type multivitamin 1 tablet PO DAILY 03/11/22 03/28/25 History spironolactone 100 mg tablet mg 02/26/25 03/14/25 History amoxicillin 500 mg-potassium 1 tablet PO DAILY #14 tabs 03/13/25 03/28/25 Rx clavulanate 125 mg tablet (Augmentin) levofloxacin 500 mg tablet 500 mg PO DAILY #10 tabs 04/05/25 Rx Allergies Allergy/AdvReac Type Severity Reaction Status Date / Time No Known Allergies Allergy Verified 04/06/25 07:16 Vital Signs Vital Signs - 24 hr 04/06/25 06:30 Temperature 36.6 C Pulse Rate 82 Respiratory Rate 16 Blood Pressure 111/74 Pulse Oximetry 99 Oxygen Delivery Room Air Exam Const: General: comfortable and no acute distress HENMT: Ears: TM's normal bilaterally Face/Nose/Sinus: Normal nares present Mouth: Yes moist mucous membranes Eyes: General: appearance normal, both eyes and all related structures Sclera: sclerae normal Pupils: Equal, round and reactive pupils present EOM: EOMs intact bilaterally Neck: Neck: supple and no JVD Resp: Effort & Inspection: normal respiratory effort Auscultation: clear to auscultation bilaterally Cardio: Rate: regular rate Rhythm: regular rhythm GI: GI Palp: Yes Soft to palpation, No Firmness to palpation present (GI), No Tenderness to palpation present (GI), No Guarding due to palpation present (GI) and No Hernia present Skin: Other: In the upper midline gluteal cleft there is a 2 to 3 cm pilonidal abscess with associated cellulitic changes with redness and drainage from a small opening. Mild surrounding tenderness. Neuro: General: gait normal Speech: normal speech Motor exam (neuro): 5/5 motor strength present throughout Sensory Exam: normal sensation Extrem: General: normal to inspection Psych: Mental Status: mental status grossly normal Affect: normal affect Assessment and Plan Assessment and plan (1) Pilonidal cyst with abscess: Code(s): L05.01 - Pilonidal cyst with abscess Status: Acute Assessment and Plan: Unfortunate the patient developed another pilonidal abscess with cellulitis prior to the scheduled cholecystectomy for this morning. She will need a formal operative incision and drainage of the abscess for packing. Will need to then change packing for couple days and then get her rescheduled for a formal pilonidal cystectomy in a couple of weeks. Risks, benefits, indications, and expected outcomes were discussed in detail with the patient and/or family. They understand and I have answered all other questions. They wished to proceed with surgery as outlined above.
--- NOTE | 2025-04-06 08:15 | WPDHPUPDATE1 ---
History and Physical Update Update Date/Time: 04/06/25 08:15 History and Physical has been reviewed, including an updated exam of the patient. There are NO changes in the patient's condition. Risks, benefits, and alternatives have been discussed and questions answered. Patient agrees to proceed with procedure.
[2025-04-06] MEDS: ceFAZolin 2 GM in SODIUM CHLORIDE 0.9% IV 50 ML 100 ML IVPB (09:13)
[2025-04-06] MEDS: LIDO 1%/EPINEPHRINE 1:100,000 20 ML VIAL INFILTRATE (09:27)
[2025-04-06] MEDS: BUPivacaine HCL 0.5% 10 ML AMP 20 ML INFILTRATE (09:28)
[2025-04-06 09:50] VITALS: BP 93/43; PULSE 71; RESP 12; TEMP 36.2; O2SAT 99
[2025-04-06 10:00] VITALS: BP 101/51; PULSE 88; O2SAT 100
[2025-04-06 10:20] VITALS: BP 99/54; PULSE 83; O2SAT 100
--- NOTE | 2025-04-06 12:27 | P.OP_ITS ---
Procedure Note - Detailed Date of Procedure 04/06/25 Pre-op Diagnosis Recurrent pilonidal abscess and cellulitis Post-op Diagnosis Same Procedure Performed Incision and drainage of recurrent pilonidal abscess Surgeon Moo Collado MD Certified Detention Deputy Vince MARTÍNEZA Anesthesia General Indications Patient is a 24-year-old female who presented in the office after having had a pilonidal abscess drained in the emergency room. The wound was healing and the infection had pretty much resolved. She was scheduled for an outpatient pilonidal cystectomy. Unfortunately just before the elective procedure was to be done she developed redness and pain and drainage from the area again. She was seen on the morning of surgery and indeed she had a draining recurrent pilonidal abscess. The plan for a pilonidal cystectomy was abandoned and plans were made for incision and drainage of the pilonidal abscess. She presents for that procedure now. Findings Patient has a recurrent pilonidal abscess which occurs in the upper 1/3 of the upper midline gluteal cleft. Extends down to the mid cleft region. There is no draining sinus tracts off of the midline. The abscess cavity measures approximately 3x2cm. Description of Procedure After informed consent was obtained from the patient she was then brought to the operating room she was placed in the left lateral decubitus position on operating table after being given IV sedation. The area the upper midline gluteal cleft was then prepped and draped usual sterile fashion. Time-out was then performed correctly identifying the patient as well as procedure to be performed. She was given some perioperative IV antibiotics. First started by anesthetizing the area around the abscess with 1% lidocaine mixed with 0.5% Marcaine in a 50 50 mixture with some epinephrine. Once this was done I then placed a Jaquelin clamp into the small opening which was about 3mm in diameter. I then opened the skin vertically in the upper 1/3 of the midline gluteal cleft with the scalpel. I then extended the incision inferiorly as well until the incision was approximately 2cm in length. This exposed an underlying abscess cavity which measured approximately 3x2cm. I obtained a wound swab which was sent to microbiology for Gram stain and culture. Placement X finger into the abscess cavity and broke down any loculations which were present. I then used a curette to mechanically disrupt any epithelialized tissue within the abscess cavity. I then irrigated out the abscess cavity sterile saline solution hemostasis was achieved utilized electrocautery. The abscess cavity was then packed with quarter-inch iodoform gauze. The area was then cleaned and then covered with dry dressings. The patient tolerated the procedure well no complications. All sponges, needles, and instrument counts were correct at the end procedure. EBL was _ 5 __cc. The patient was awakened and taken to recovery in stable and satisfactory condition. Implants None Estimated Blood Loss 5 Drains No Packing Yes (Quarter-inch iodoform gauze to pilonidal abscess cavity) Pathology Other (Wound culture swab sent to microbiology for Gram stain and culture) Complications No immediate complications Condition Stable Disposition PACU [facility] Billing Surgery - Charge Forward: Surgery Billing
== END 2025-04-06 10:45 | disposition home or self-care (01) ==
PROVIDERS: PCP Family Medicine; Visit Provider Surgery
PROC: (CPT 11771; principal; 2025-04-06 07:30)
DX: L05.01 Pilonidal cyst with abscess (principal); J45.909 Unspecified asthma, uncomplicated; Z98.890 Other specified postprocedural states; Z82.49 Family history of ischemic heart disease and other diseases of the circulatory system
CPT/HCPCS: 11771; J0690; A9270; J2003; J2004; J2250; J2405; J2704; J3010; J7120

== ENCOUNTER 2025-04-30 00:12 | Day surgery (SDC) | payer BC, SELFPAY ==
[2025-04-20 10:05] VITALS: BMI 24.3
--- NOTE | 2025-04-20 10:12 | PC.NURSE ---
Report to the Outpatient Waiting Room, entrance under the green pavilion located off [facility], at time _1100_ on date _[id number]_. Planned Procedure Time: _1pm_.? Time changes happen often and if your time is changed the preop area will call you the afternoon before. - You and your visitor will be asked to self-screen and do not enter if you have any COVID symptoms. Please call surgeon if you need to reschedule. - A mask is optional within the hospital at this time. Patients may have clear liquids (water, carbonated beverages, clear teas, apple juice) until 3 hours prior to surgery with a maximum of 20 ounces. - No food from midnight until time of surgery and no smoking, or chewing tobacco (or any form of nicotine). No chewing gum, candy or mints. Take only the following medications with a SIP of water on the morning of surgery: __Doxycycline and if needed Hydrocodone.___ DO NOT STOP ANY OF YOUR OTHER PRESCRIPTION MEDICATIONS PRIOR TO SURGERY EXCEPT THE FOLLOWING Hold all vitamins and supplements for 3 days per anesthesiologist. Medications to discontinue per physician Date to take last fqxv__[id number]____ Please no make-up, nail ivorian, hairspray, perfume, deodorant, or body powder the day of surgery.? No jewelry (including any body piercings) or valuables the day of surgery, leave them at home.? Please take a shower or bath the night before, or the morning of, surgery with an antibacterial soap.? Wear comfortable, loose fitting clothing.? - Jewelry must be removed prior to entering the operating room.? Rings and piercings that are not removed may be cut off. - The hospital will not accept responsibility for valuables.? - Please leave all valuables, including medications, at home the day of surgery. If you are going home after surgery, a licensed bulk tank driver must drive you home.? - NO public transportation without another adult if you receive anesthesia. - We recommend that an adult stay with you for 24 hours following discharge. - We also recommend that you do not drive, make important decision, drink alcoholic beverages, or take any drugs that were not prescribed by your health care provider for at least 24 hours after your discharge time. Follow any additional instructions given to you from your surgeon. Telephone instructions given to ___Coltonla__and asked if any additional questions and then verbalized understanding. Patient advised to call surgeon office or pre surgery nurse liaison [phone] if any additional questions.
[2025-04-30] VITALS (9 sets, daily range): BP systolic 79–111; BP diastolic 42–79; PULSE 59–91; RESP 12–16; TEMP 36.3–36.6; O2SAT 100
--- OUTSIDE RECORDS SUMMARY | 2025-04-30 00:14 | XMS_ITS | Clinical Summary ---
Author Organization [facility] Address [address] [place] [address] Care Team Providers Care Studio Grip Name Role Phone Birdie Dexter MD Primary Care Provider [phone] Source Comments [facility],non-owned Affiliates and Associated Physician Practices is amultiple site organization consisting of ambulatory clinics and hospital sitesin [place], [place], [place] and [place]. This disclosure is being madepursuant to the Care Everywhere program and may not contain all information available regarding this patient. Last updated 18.[facility] Allergies No known active allergies Medications * [...] on file Legal Sex Female 8:00 AM DIETETIC INTERN Gender Identity Not on file Sexual Orientation [...] patient's age to complete this topic Insurance [facility] Care Teams Studio Grip Relationship Specialty Start Date End Date Birdie Dexter MD [address] [place] [address] [address] [place] [id number] PCP - General Pediatrics 04/04/12
--- OUTSIDE RECORDS SUMMARY | 2025-04-30 00:14 | XMS_ITS | Clinical Summary ---
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
[2025-04-30] MEDS: LACTATED RINGERS 1,000 ML 30 ML IV CONT ×2 (11:50→14:15)
[2025-04-30 12:13] LABS: BEDSIDEPREGUCG Negative (Negative)
--- NOTE | 2025-04-30 12:27 | WPDHPUPDATE1 ---
History and Physical Update Update Date/Time: 04/30/25 12:27 History and Physical has been reviewed, including an updated exam of the patient. There are NO changes in the patient's condition. Risks, benefits, and alternatives have been discussed and questions answered. Patient agrees to proceed with procedure.
--- NOTE | 2025-04-30 12:29 | P.PNAN_ITS ---
Anes - Initial Pre Proc Eval Procedure: Operation Date: 04/30/25 13:00 Proposed Procedures p Recurrent Pilonidal Cystectomy - Moo Collado MD Date/Time: 04/30/25 12:29 Surgeon: Moo Collado MD Pre Op Diagnosis: Recurrent Pilonidal cyst Patient Data Age: 24 Gender: F Height: 1.68 m Weight: 68 kg Last Vital Signs Temp 36.6 C 04/30/25 11:30 Pulse 80 04/30/25 11:30 Resp 16 04/30/25 11:30 BP 111/79 04/30/25 11:30 Pulse Ox 100 04/30/25 11:30 O2 Del Method Room Air 04/30/25 11:30 Allergies Allergy/AdvReac Type Severity Reaction Status Date / Time No Known Allergies Allergy Verified 04/30/25 11:36 Home Medications ?Medication ?Instructions ?Recorded ?Confirmed ?Type multivitamin 1 tablet PO DAILY 03/11/22 0 04/30/25 History spironolactone 100 mg tablet 100 mg PO DAILY 02/26/25 04/30/25 History Held on 03/07/25. Instructions: Patient Condition doxycycline monohydrate 50 mg 50 mg PO BID #30 caps 04/30/25 Rx capsule Laboratory Tests 04/30/25 11:35 POC Urine HCG, Qual Negative (Negative) Patient hx anesthesia problems: none Family hx anesthesia problems: none Results Review: All pre-operative results and documents have been reviewed as part of the pre- operative evaluation. [facility] Past Medical History Medical History Broken arm Right Asthma Allergies Surgical History Surgical History History of incision and drainage 04/06/2025 Incision and drainage of recurrent pilonidal abscess History of placement of ear tubes Family History Family History Father Diabetes mellitus Mother Asthma Grandparent Alcoholism Heart disease Social History Social History Smoking status: Never smoker Alcohol intake: current Drinks per week: 2 Substance use: never Current Housing: Decline to Answer Concerned About Future Housing: Decline to Answer Difficulty Paying Gas/Electric Bills: Decline to Answer Difficulty Paying for Meds: Decline to Answer Currently Unemployed: Decline to Answer Education: Decline to Answer Difficulty w/ Childcare or Family Care: Decline to Answer Living arrangements: with family Spiritual care concerns: No Anes - Eval Final PreProcedure Day of Procedure 04/30/25 12:29 Patient weight: normal Heart: regular rate and rhythm Lungs: clear to auscultation Airway: Mallampati scale class II Neurological: alert and oriented Last oral intake: >/= 8 hours ASA classification: II Emergent: no Anesthetic plan: proceed Anesthesia type and monitoring: general ETT and standard monitoring Results Review: All pre-operative results and documents have been reviewed as part of the pre- operative evaluation. Informed Consent: The patient's anesthetic plan and its attendant risks and benefits were discussed with the patient/family/POA. Questions were solicited and answers provided to the satisfaction of the patient/family/POA.
--- NOTE | 2025-04-30 12:46 | P.PNAN_ITS ---
Anes - Eval Final PreProcedure Day of Procedure 04/30/25 12:46 Patient weight: normal Heart: regular rate and rhythm Lungs: clear to auscultation Airway: Mallampati scale class 1 Neurological: alert and oriented Last oral intake: >/= 8 hours ASA classification: II Emergent: no Anesthetic plan: proceed Anesthesia type and monitoring: general ETT and standard monitoring Results Review: All pre-operative results and documents have been reviewed as part of the pre- operative evaluation. Informed Consent: The patient's anesthetic plan and its attendant risks and benefits were discussed with the patient/family/POA. Questions were solicited and answers provided to the satisfaction of the patient/family/POA.
[2025-04-30] MEDS: SCOPOLAMINE 1 MG PATCH 1 PATCH TRANSDERM (12:50)
[2025-04-30] MEDS: ceFAZolin 2 GM in SODIUM CHLORIDE 0.9% IV 50 ML 100 ML IVPB (12:52)
[2025-04-30] MEDS: LIDO 1%/EPINEPHRINE 1:100,000 20 ML VIAL 30 ML INFILTRATE (12:52)
--- NOTE | 2025-04-30 13:22 | S_PTH ---
PATIENT: Yanelis Love LOC: [facility] U#:[id number] AGE/SX: 24/F ROOM: RE04/30/[address]: Moo Collado MD : 2000 BED: DIS: 04/30/2025 SPEC #: [id number] RECD: 04/30/25 14:11 STATUS: IVA REQ #: [id number] NEENA: 04/30/25 13:[address]: Moo Collado DEPT: [facility] Surgical RECD BY: Lurdes Christy ENTERED: 04/30/25 14:11 SP TYPE: Surgical OTHR DR: Aurora Dumont, Tissues: A - Cyst Procedures: Hematoxylin and Eosin Stain Gross and Microscopic Level 4
[2025-04-30] MEDS: BACITRACIN OINTMENT 15 GM TUBE 1 APPLIC TOPICAL (14:02)
--- NOTE | 2025-04-30 14:31 | P.OP_ITS ---
Procedure Note - Detailed Date of Procedure 04/30/25 Pre-op Diagnosis Recurrent Pilonidal cyst Post-op Diagnosis Same Procedure Performed Extensive pilonidal cystectomy. Surgeon Moo Collado MD Handstitching Machine Armhole Feller Fantasma Tripathi SA Anesthesia General Indications Patient is a 24-year-old female who past several months has had 2 episodes of pilonidal abscess that required drainage. Due to the recurrent nature of her pilonidal abscesses due to her chronic pilonidal cyst she presents now for el ective pilonidal cystectomy. Findings The patient had 3 small pits in the midportion of the upper midline gluteal cleft. The draining sinus tract was in the midline about 2cm cephalad to the most superior pit. The area showed no evidence of a chronic abscess but the tissue was somewhat indurated due to the recent abscess which was drained and th e wound was allowed to close by secondary intention. The resection included all the pilonidal cyst as well as the chronic inflamed tissue from the old abscess cavity. The excision was carried all the way down to the presacral fascia. Description of Procedure After informed consent was obtained patient brought to the operating room she was placed under general endotracheal anesthesia and turned prone onto the operating table. Measures were taken to make sure all the pressure points well padded. A time-out was then performed correctly identifying the patient as well as procedure to be performed. She was given perioperative IV antibiotics. I then proceeded to make a fungating elliptical incision to include the 3 pits in the midline of the upper midline gluteal cleft and the area of old abscess which was drained and closed by secondary intention. The initial incision carried sharply down through the dermis skin with a scalpel and then electrocautery was then used to dissect down to the subcutaneous tissues down to the presacral fascia. The ellipse of tissue containing the pilonidal cyst and the draining sinus tract and old abscess cavity were excised en bloc. There was no evidence of residual chronic abscess cavity. I then irrigated out the incision with sterile saline solution. Hemostasis was then utilized electrocautery. The wound was then closed in 5 layers to close all the space in the incision. 1% lidocaine mixed with 0.5% Marcaine with epinephrine was then injected the presacral fashion the subcutaneous tissues around the incision. An initial layer of 0 Vicryl sutures were placed in the deepest parts of the wound with the presacral fascia. This was then followed by 2 layers of interrupted 2-0 Vicryl sutures in the mid depth subcutaneous tissues. A more superficial layer of 3-0 Vicryl sutures were used to close the subcutaneous tissues and deep dermal layer. Finally a layer of interrupted 3-0 nylon sutures placed in a vertical mattress fashion was used to approximate the skin edges. The incision closed nicely without any tension. Incision was then cleaned and then antibiotic ointment was applied to the incision line. 4X4 gauze and an ABD and disposable underwear was then placed. The patient tolerated the procedure well no complications. All sponges, needles, and instrument counts were correct at the end procedure. EBL was _30__cc. The patient was awakened and taken to recovery in stable and satisfactory condition. Implants None Estimated Blood Loss 30 Drains No Packing No Pathology Yes ( Pilonidal cyst and abscess cavity sent to pathology) Complications No immediate complications Condition Stable Disposition PACU [facility] Billing Surgery - Charge Forward: Surgery Billing
== END 2025-04-30 16:40 | disposition home or self-care (01) ==
PROVIDERS: PCP Family Medicine; Visit Provider Surgery
PROC: (CPT 11771; principal; 2025-04-30 13:00)
DX: L05.91 Pilonidal cyst without abscess (principal); J45.909 Unspecified asthma, uncomplicated; Z98.890 Other specified postprocedural states; Z82.49 Family history of ischemic heart disease and other diseases of the circulatory system
CPT/HCPCS: 11771; 88305; J0690; A9270; J0330; J1100; J2003; J2004; J2250; J2405; J2704; J3010; J7120